=== PATIENT | female | born 1955 | race Caucasian/White ===

== ENCOUNTER 2017-08-17 19:35 | Emergency (ER) | payer OTHER ==
[~2017-08-17] VITALS: Ht 157.5 cm; Wt 83.9 kg
[2017-08-17] MEDS ORDERED: VALSARTAN80 MG PO (19:38)
[2017-08-17] MEDS ORDERED: METFORMIN HCL500 MG PO (19:39)
[2017-08-17] MEDS ORDERED: FLONASE 0.05%50 MCG NASAL (19:40)
[2017-08-17 21:00] VITALS: BP 141/83
[2017-08-17] MEDS ORDERED: NORCO 5-325 TA1 EACH PO (23:34)
== END 2017-08-17 23:45 | disposition home or self-care (01) ==
LOC: ER 19:35
DX: S59.291A Other physeal fracture of lower end of radius, right arm, initial encounter for closed fracture (principal); I10 Essential (primary) hypertension; E78.00 Pure hypercholesterolemia, unspecified; Z90.710 Acquired absence of both cervix and uterus; Z88.8 Allergy status to other drugs, medicaments and biological substances; W18.39XA Other fall on same level, initial encounter; Y93.89 Activity, other specified; Y92.89 Other specified places as the place of occurrence of the external cause; Y99.8 Other external cause status

== ENCOUNTER → 2017-12-09 | Outpatient (CLI) | payer OTHER ==
[~2017-12-09] MED LIST: FLONASE 0.05%50 MCG NASAL; METFORMIN HCL500 MG PO; NORCO 5-325 TA1 EACH PO; VALSARTAN80 MG PO
== END ==
LOC: RAD 01:06
DX: Z12.31 Encounter for screening mammogram for malignant neoplasm of breast (principal)